=== PATIENT | female | born 1975 | race African-American/Black ===

== ENCOUNTER 2024-02-05 09:40 | Day surgery (SDC) | payer BC ==
[2024-02-04 13:02] VITALS: BMI 32.8
[2024-02-05 09:56] VITALS: RESP 16
[2024-02-05 11:02] VITALS: PULSE 81; TEMP 98.4
[2024-02-05 11:17] VITALS: BP 122/75
== END 2024-02-05 11:20 | disposition home or self-care (01) ==
LOC: FASU-ENDO 09:40
PROVIDERS: ATTEND Internal Medicine Gastroenterology
PROC: 0DJD8ZZ Inspection of Lower Intestinal Tract, Via Natural or Artificial Opening Endoscopic (ICD-10-PCS; principal; 2024-02-05 10:30)
DX: Z12.11 Encounter for screening for malignant neoplasm of colon (principal); K57.30 Diverticulosis of large intestine without perforation or abscess without bleeding; K64.1 Second degree hemorrhoids; K64.8 Other hemorrhoids
CPT/HCPCS: 81025